=== PATIENT | female | born 1960 | race Caucasian/White ===

== ENCOUNTER 2018-04-08 07:56 | Inpatient (IN) | payer OTHER ==
[~2018-04-08] VITALS: Ht 162.6 cm; Wt 68.9 kg
[2018-04-08 08:35] LABS: HEMATOCRIT 46.2 % (36.0-46.0); HEMOGLOBIN 16.2 G/DL (11.9-15.5); MCH 31.6 PG (29.0-34.0); MCHC 35.1 G/DL (30.0-36.0); MCV 90.2 FL (83-99); PLATELET COUNT 349 K/uL (156-360); RBC DIS.WIDTH-CV 12.4 % (11.8-14.6); RBC DIS.WIDTH-SD 41.1 % (39-53); RED BLOOD COUNT 5.12 M/uL (3.80-5.20); WHITE BLOOD COUNT 19.7 K/uL (4.1-10.2)
[2018-04-08 08:39] LABS: APPEARANCE CLOUDY ((CLEAR)); BILIRUBIN NEGATIVE; BLOOD SMALL; COLOR YELLOW ((YELLOW)); GLUCOSE (STRIP) 50; KETONES 5; LEUKOCYTES TRACE; NITRITE NEGATIVE; PROTEIN (STRIP) 100; SPECIFIC GRAVITY 1.016 (1.000-1.030); UROBILINOGEN 0.2 MG/DL (0.2-1.0)
[2018-04-08 08:46] LABS: BACTERIA NONE SEEN /HPF; EPITHELIAL CELLS 1+ /HPF; HYALINE CASTS 0-5 /LPF; MUCUS TRACE /LPF; WHITE BLOOD CELLS 0-5 /HPF (0-5)
[2018-04-08 08:46] LABS: CHLORIDE 97 mEq/L (99-109); POTASSIUM 3.7 mEq/L (3.7-5.4); SODIUM 137 mEq/L (136-147)
[2018-04-08 08:48] LABS: GLUCOSE 177 mg/dL (70-99); TOTAL PROTEIN 8.6 g/dL (6.4-8.3)
[2018-04-08 08:50] LABS: TOTAL BILIRUBIN 0.8 mg/dL (0.0-1.0)
[2018-04-08 08:52] LABS: ALKALINE PHOSPHATASE 82 IU/L (3-129); GFR ESTIMATE (CALCULATED) > 59 mL/min/
[2018-04-08 08:53] LABS: UREA NITROGEN (BUN) 9 mg/dL (9-23)
[2018-04-08 08:54] LABS: AST (GOT) 22 IU/L (2-34)
[2018-04-08 08:55] LABS: ALT (GPT) 18 IU/L (3-49); LIPASE 37 U/L (1.0-51.0)
[2018-04-08 09:46] LABS: TROP-I INTERPRETATION NEGATIVE; TROPONIN-I 0.24 ng/mL (0.0-0.30)
[2018-04-08 15:06] LABS: TROP-I INTERPRETATION INDETERMINATE; TROPONIN-I 0.49 ng/mL (0.0-0.30)
[2018-04-08 16:21] VITALS: BP 143/60
[2018-04-08 19:50] VITALS: BP 162/68
[2018-04-08 20:57] LABS: TROP-I INTERPRETATION INDETERMINATE; TROPONIN-I 0.45 ng/mL (0.0-0.30)
[2018-04-09] VITALS: BP 163/77
[2018-04-09 04:35] VITALS: BP 182/74
[2018-04-09 05:14] LABS: HEMATOCRIT 45.6 % (36.0-46.0); MCH 30.9 PG (29.0-34.0); MCHC 32.9 G/DL (30.0-36.0); PLATELET COUNT 370 K/uL (156-360); RBC DIS.WIDTH-SD 44.9 % (39-53); RED BLOOD COUNT 4.85 M/uL (3.80-5.20); WHITE BLOOD COUNT 14.6 K/uL (4.1-10.2)
[2018-04-09 05:38] LABS: CHLORIDE 104 MEQ/L (99-109); CREATININE 0.8 MG/DL (0.6-1.3); GFR ESTIMATE (CALCULATED) > 59 mL/min/; GLUCOSE 126 mg/dL (70-99); SODIUM 142 MEQ/L (136-147); UREA NITROGEN (BUN) 9 mg/dL (9-23)
[2018-04-09 08:00] VITALS: BP 129/30
[2018-04-09] MEDS ORDERED: ZESTRIL40 MG PO (12:07)
[2018-04-09 12:30] VITALS: BP 131/63
[2018-04-09 15:38] VITALS: BP 148/67
== END 2018-04-09 17:41 | disposition home or self-care (01) | DRG 446 ==
LOC: EME 07:56 → EDOF 11:19 → 4EAST 11:19 → ENRESERV 11:23 → 4EAST 13:19
PROVIDERS: Nurse Practitioner Family; Physician Assistant
DX: K80.20 Calculus of gallbladder without cholecystitis without obstruction (principal); R94.31 Abnormal electrocardiogram [ECG] [EKG]; I10 Essential (primary) hypertension; E86.0 Dehydration; D72.829 Elevated white blood cell count, unspecified; K57.30 Diverticulosis of large intestine without perforation or abscess without bleeding; R74.8 Abnormal levels of other serum enzymes; R73.9 Hyperglycemia, unspecified; Z83.3 Family history of diabetes mellitus
CPT/HCPCS: 74177; 76705; 78452; 80048; 80053; 81003; 83690; 84484; 85027; 87040; 93005; 93017; 99281; 99284; A9500; J0360; J0744; J1885; J2405; J2785; J7030; S0030

== ENCOUNTER → 2018-04-12 | Outpatient (CLI) | payer OTHER ==
[~2018-04-12] MED LIST: ZESTRIL40 MG PO
== END | disposition home or self-care (01) ==
LOC: NUC 10:13
DX: K81.1 Chronic cholecystitis (principal)
CPT/HCPCS: 78226; A9537; J2270